=== PATIENT | female | born 1960 | race American Indian/Alaskan Native ===

== ENCOUNTER 2020-04-02 16:59 | Emergency (ER) | payer SELFPAY ==
[2020-04-02 17:42] VITALS: BP 148/95
== END 2020-04-02 21:30 | disposition left against medical advice (07) ==
LOC: ED 16:59
DX: M54.2 Cervicalgia (principal); Z53.21 Procedure and treatment not carried out due to patient leaving prior to being seen by health care provider; V49.69XA Unspecified car occupant injured in collision with other motor vehicles in traffic accident, initial encounter; Y93.89 Activity, other specified; Y92.488 Other paved roadways as the place of occurrence of the external cause; Y99.8 Other external cause status